=== PATIENT | male | born 1975 | race Native Hawaiian/Other Pacific Islander ===

== ENCOUNTER → 2018-06-23 | Outpatient (CLI) | payer MEDICARE, OTHER ==
--- NOTE | 2018-06-23 21:54 | CONS ---
CONSULTATION DATE OF SERVICE: 06/23/2018 This patient is a 43-year-old gentleman who has been evaluated in the sleep center for obstructive sleep apnea-hypopnea syndrome. Patient was diagnosed with obstructive sleep apnea in about 2010, and he started treatment with CPAP. But several months ago his machine was broken. Patient snores and has awakenings from sleep 3 times. He has problems with falling asleep. He usually goes to bed between 9 and 10 p.m. and sleeps until around 6 in the morning. He does not have a TV set in the bedroom. He usually sleeps on the side position. No history of hypnagogic hallucinations, sleep paralysis or cataplexy. [place] Sleepiness Scale is 8. PAST MEDICAL HISTORY: Positive for: 1. ADD in the past. 2. History of rhinitis. PAST SURGICAL HISTORY: Low back surgery. MEDICATIONS: None at the present time. SOCIAL HISTORY: Negative for smoking or using alcohol. FAMILY HISTORY: Headaches and diabetes. REVIEW OF SYSTEMS: Multiple awakenings from sleep. PHYSICAL EXAMINATION: GENERAL: A pleasant 43-year-old gentleman without distress. VITAL SIGNS: BP 123/75, HR 68, RR 16, height 5 feet 8 inches, weight 169 pounds, body mass index 25.6, temperature 98.0, oxygen saturation at room air 96%. HEENT: PERRLA, EOMI. Evaluation of oropharynx showed tongue protrudes midline. Extremely low position of soft palate. Mallampati IV. Slight restriction of nasal breathing. NECK: Supple. No JVD. Thyroid is not palpable. Neck measures 15 inches in circumference. LUNGS: Clear to percussion and to auscultation. Good air exchange. No wheezing or rhonchi. HEART: S1, S2 regular. No murmurs, gallops or rubs. ABDOMEN: Soft and nontender. Bowel sounds are present. No organomegaly. EXTREMITIES: No clubbing or cyanosis. CLASSIFIED AD CLERK: Awake, alert, and oriented X3. Cranial nerves 2 to 7 intact. There is no fasciculation or atrophy. noted. No focal deficits observed. IMPRESSION: 1. Snoring, multiple awakenings from sleep, low position of soft palate, history of obstructive sleep apnea-hypopnea syndrome in the past; obstructive sleep apnea- hypopnea syndrome. 2. History of attention deficit disorder in the past. 3. History of back problems, status post low back surgery. 4. History of rhinitis. PLAN: 1. Polysomnography for evaluation of patient's breathing during sleep. 2. CPAP/BiPAP titration if sleep study confirms obstructive sleep apnea-hypopnea syndrome. 3. Preferable position during sleep on the side. 4. No driving if patient feels any sleepiness. 5. I will see patient for follow up visit to explain results of testing and following plan. Thank you very much for allowing me to participate in the management of your patient. Sincerely, Alfonzo Porter MD, PhD, FAASM Diplomat of [place] [employer] [place] [employer] [facility] [place] MMODL / IJN: [id number] /
== END | disposition home or self-care (01) ==
LOC: SLEEP 14:40
PROVIDERS: ATTEND Internal Medicine
DX: R06.83 Snoring (principal); Z86.69 Personal history of other diseases of the nervous system and sense organs; Z87.39 Personal history of other diseases of the musculoskeletal system and connective tissue; Z87.09 Personal history of other diseases of the respiratory system; Z98.890 Other specified postprocedural states
CPT/HCPCS: 99211

== ENCOUNTER → 2020-08-02 | Outpatient (CLI) | payer MEDICARE ==
--- NOTE | 2020-08-02 10:40 | XR ---
EXAMINATION TYPE: XR lumbar spine 2 or 3V DATE OF EXAM: 08/02/2020 CLINICAL HISTORY: pain TECHNIQUE: Three views of the lumbar spine are submitted. COMPARISON: None. FINDINGS: There are 5 lumbar type vertebral bodies identified. The lumbar spine shows satisfactory alignment w ithout evidence of acute fracture or dislocation. Vertebral body heights are within normal limits. Mild degenerative disc space narrowing primarily at L5-S1. The overlying soft tissue appears unremar kable. IMPRESSION: No acute fracture or dislocation is seen in the lumbar spine. ICD 10 NO FRACTURE, INITIAL EVALUATION
--- NOTE | 2020-08-02 10:41 | XR ---
EXAMINATION TYPE: XR cervical spine comp DATE OF EXAM: 08/02/2020 CLINICAL HISTORY: pain COMPARISON: NONE TECHNIQUE: Frontal, lateral, oblique, swimmers, and open mouth view of the cervical spine are obtaine d. FINDINGS: The cervical spine is visualized in its entirety from C1 thru the top of T1 level. It is s atisfactory in alignment without evidence of acute fracture or dislocation. The pre-vertebral soft t issue appears within normal limits. Disc spaces are well preserved. The C1-C2 articulation is unremar kable on the open mouth view. The oblique images are within normal limits. IMPRESSION: No acute fracture or dislocation is seen in the cervical spine.ICD 10 NO FRACTURE, INITI AL EVALUATION
--- NOTE | 2020-08-02 10:41 | XR ---
EXAMINATION TYPE: XR thoracic spine complete DATE OF EXAM: 08/02/2020 CLINICAL HISTORY: pain TECHNIQUE: Frontal, lateral, and swimmer's view of thoracic spine are obtained. COMPARISON: None. FINDINGS: Thoracic spine show satisfactory alignment without evidence of acute fracture or dislocatio n. Vertebral body heights are preserved. Disc spaces are well preserved. Visualized ribs are unrem arkable. IMPRESSION: No acute fracture or dislocation is seen in the thoracic spine. ICD 10 NO FRACTURE, INIT IAL EVALUATION
== END | disposition home or self-care (01) ==
LOC: RADXRMAIN 09:58
PROVIDERS: ATTEND Nurse Practitioner Gerontology
DX: M54.5 Low back pain (principal); M54.6 Pain in thoracic spine; M54.2 Cervicalgia
CPT/HCPCS: 72050; 72072; 72100

== ENCOUNTER → 2020-09-03 | Outpatient (CLI) | payer MEDICARE ==
--- NOTE | 2020-09-03 08:08 | CT ---
EXAMINATION TYPE: CT pelvis wo con DATE OF EXAM: 09/03/2020 COMPARISON: None HISTORY: Bilateral hip pain, left worse than right CT DLP: 210.6 mGycm Automated exposure control for dose reduction was used. Unenhanced CT of the pelvis was performed wit h bone and soft tissue window settings submitted. FINDINGS: There is mild degenerative narrowing noted of the bilateral hip joints. Mild acetabular spur formatio n is noted bilaterally. There is no evidence for femoral acetabular impingement. No evidence for frac ture or dislocation. No osseous lesions seen. No soft tissue mass or fluid collection evident. IMPRESSION: MILD DEGENERATIVE CHANGES OF THE HIP JOINTS.
== END | disposition home or self-care (01) ==
LOC: RADCTMAIN 07:10
PROVIDERS: ATTEND Family Medicine
DX: M16.0 Bilateral primary osteoarthritis of hip (principal)
CPT/HCPCS: 72192

== ENCOUNTER → 2020-10-22 | Outpatient (CLI) | payer MEDICARE ==
--- NOTE | 2020-10-22 17:41 | MR ---
EXAMINATION TYPE: MR brain wo/w con DATE OF EXAM: 10/22/2020 COMPARISON: 12/03/2015, 12/02/2015 CT HISTORY: Neck pain into risa upper extremities, headaches. History of fall from 2nd story onto head an d neck. CONTRAST: Performed utilizing 7 mL intravenous Gadavist gadolinium contrast. TECHNIQUE: Multiplanar, multiecho imaging on a 3.0 [place] magnet is performed through the brain. Stud y is performed within 24 hours of arrival to the hospital. The craniovertebral junction is normal. The pituitary is normal. Anterior to the pituitary along th e cribriform plate is a 2.1 x 1.6 cm intermediate signal area. This does not appear to enhance. Lack of significant growth suggests this is more likely a benign process. Monitoring however, is recommend ed. Consider a repeat CT sinus study without contrast to reevaluate cribriform plate. Diffusion-weighted imaging is performed. No abnormal hyperintensity is present to suggest an acute i ntracranial infarct or acute ischemic change. No signal abnormality within the brain is evident. No contrast enhancement within the brain is eviden t. Ventricles and sulci are appropriate for the patient age. IMPRESSIONS: 1. No acute intracranial process. No acute posttraumatic changes. 2. Persistent oval density within the superior sphenoid sinus. Significant interval growth is not shahrzad dent suggesting a more benign process. Consider repeat CT sinuses to reevaluate the cribriform plate.
--- NOTE | 2020-10-22 21:50 | MR ---
EXAMINATION TYPE: MR cervical spine wo con DATE OF EXAM: 10/22/2020 COMPARISON: None HISTORY: Neck pain into risa upper extremities, headaches. History of fall from 2nd story onto head an d neck. CONTRAST: Performed utilizing 0 mL intravenous Gadavist gadolinium contrast. TECHNIQUE: Multiplanar multiecho imaging on a 3.0 [place] magnet is performed through the cervical spin e. FINDINGS: The craniovertebral junction is normal. Vertebral body alignment is normal. C7-T1: No focal disc herniation or significant disc bulge is evident. No spinal canal stenosis or n eural foraminal stenosis is present. C6-7: No focal disc herniation or significant disc bulge is evident. No spinal canal stenosis or trish ral foraminal stenosis is present. C5-6: No focal disc herniation or significant disc bulge is evident. No spinal canal stenosis or trish ral foraminal stenosis is present. C4-5: No focal disc herniation or significant disc bulge is evident. No spinal canal stenosis or trish ral foraminal stenosis is present. C3-4: There is a large right paracentral disc herniation with moderate to significant anterior thecal sac compression. This comes in close approximation with the spinal cord. Some cord flattening is not ed at this level. Right foraminal moderate stenosis is present. Mild left foraminal narrowing is pres ent.. C2-3: Right paracentral focal disc protrusion is present with moderate anterior thecal sac compressio n. This comes in close approximation of the spinal cord. No AP spinal canal stenosis is present. Neur al foramen are patent. Minimal flattening along the anterior right aspect of the spinal cord may be p resent. No cord contact is identified however. IMPRESSIONS: 1. Focal disc herniation with moderate anterior thecal sac compression C2-C3 in the right paracentral canal may have cord deformity although no cord contact is identified. 2. Moderately large right paracentral disc herniation with moderate to significant anterior thecal sa c compression. Cord flattening is present although no cord contact is evident on this image. No steno sis is evident.
== END | disposition home or self-care (01) ==
LOC: RADMRIMAIN 14:50
PROVIDERS: ATTEND Family Medicine
DX: M50.21 Other cervical disc displacement, high cervical region (principal); M54.12 Radiculopathy, cervical region; G95.29 Other cord compression
CPT/HCPCS: 72141; 70553; A9585

== ENCOUNTER → 2021-01-03 | Outpatient (CLI) | payer MEDICARE ==
--- NOTE | 2021-01-04 07:34 | CT ---
EXAMINATION TYPE: CT cervical spine wo con DATE OF EXAM: 01/03/2021 COMPARISON: None HISTORY: fall, pain and numbness CT DLP: 397.[address] of the cervical spine was performed with bone and soft tissue window settings submitted . Coronal and sagittal reconstruction is obtained. There is normal alignment and prevertebral soft tissues. I do not see evidence for fracture or sublu xation. C2-3: Within normal limits C3-4: Mild degenerative disc space narrowing. Right paracentral disc bulge mildly effaces the ventral thecal sac. No evidence for central stenosis or herniation. Mild right foraminal encroachment. C4-5: Within normal limits C5-6: Within normal limits C6-7: Within normal limits C7-T1: Within normal limits IMPRESSION: 1. Mild degenerative disc disease with right paracentral disc bulge at C3-4. Mild right foraminal enc roachment at this level.
== END | disposition home or self-care (01) ==
LOC: RADCTMAIN 18:13
PROVIDERS: ATTEND Orthopaedic Surgery
DX: M50.31 Other cervical disc degeneration, high cervical region (principal); M50.21 Other cervical disc displacement, high cervical region; W19.XXXA Unspecified fall, initial encounter
CPT/HCPCS: 72125

== ENCOUNTER → 2021-01-22 | Outpatient (CLI) | payer MEDICARE ==
[2021-01-22 11:48] LABS: Basophils # (A) 0.1 k/uL (0-0.2); Basophils % (A) 1 %; Eosinophils # (A) 0.2 k/uL (0-0.7); Eosinophils % (A) 3 %; HCT 53.2 % (39.0-53.0); HGB 17.6 gm/dL (13.0-17.5); Lymphocytes # (A) 1.5 k/uL (1.0-4.8); Lymphocytes % (A) 18 %; MCH 32.4 pg (25.0-35.0); MCHC 33.1 g/dL (31.0-37.0); MCV 97.7 fL (80.0-100.0); Monocytes # (A) 0.4 k/uL (0-1.0); Monocytes % (A) 5 %; Neutrophils # (A) 6.2 k/uL (1.3-7.7); Neutrophils % (A) 73 %; Platelet Count 218 k/uL (150-450); RBC 5.45 m/uL (4.30-5.90); RDW 11.8 % (11.5-15.5); WBC 8.5 k/uL (3.8-10.6)
[2021-01-22 12:04] LABS: ALT 19 U/L (4-49); AST 24 U/L (17-59); African American GFR (CKD) >90 (>60 ml/min/1.73 sqM); Albumin 4.3 g/dL (3.5-5.0); Alkaline Phosphatase 79 U/L (38-126); Anion Gap 8 mmol/L; Blood Urea Nitrogen 14 mg/dL (9-20); Calcium 9.8 mg/dL (8.4-10.2); Carbon Dioxide 28 mmol/L (22-30); Chloride 105 mmol/L (98-107); Glucose 87 mg/dL (74-99); Non-African American GFR(CKD) >90 (>60 ml/min/1.73 sqM); Potassium 4.2 mmol/L (3.5-5.1); Sodium 141 mmol/L (137-145); Total Bilirubin 0.9 mg/dL (0.2-1.3); Total Protein 7.6 g/dL (6.3-8.2)
[2021-01-22 12:23] LABS: Prothrombin Time 10.4 sec (9.0-12.0)
== END | disposition home or self-care (01) ==
LOC: LABPAT 10:05
PROVIDERS: ATTEND Orthopaedic Surgery
DX: Z01.818 Encounter for other preprocedural examination (principal); M50.21 Other cervical disc displacement, high cervical region; R00.1 Bradycardia, unspecified; Z22.322 Carrier or suspected carrier of Methicillin resistant Staphylococcus aureus
CPT/HCPCS: 36415; 80053; 85025; 85610; 87070; 93005

== ENCOUNTER → 2021-01-22 | Outpatient (CLI) | payer MEDICARE ==
[2021-01-22 15:59] LABS: Uric Acid 5.3 mg/dL (3.7-8.7)
[2021-01-23 12:47] LABS: HLA B27 NEGATIVE
[2021-01-23 14:25] LABS: Protein, Total 7.4 g/dL (6.2-8.2)
[2021-01-23 16:58] LABS: Cyclic Citrull Pep IgG Unit <0.5 U/mL; Cyclic Citrullinated Pep IgG NEGATIVE (NEGATIVE)
[2021-01-24 11:30] LABS: Free Kappa Lt Chain Qnt, Serum 2.03 mg/dL (0.33-1.94)
== END | disposition home or self-care (01) ==
LOC: LABWHC1 10:01
PROVIDERS: ATTEND Family Medicine
DX: G62.9 Polyneuropathy, unspecified (principal); M54.12 Radiculopathy, cervical region; M54.9 Dorsalgia, unspecified
CPT/HCPCS: 36415; 80053; 82175; 82525; 82570; 83655; 83825; 83883; 84165; 84403; 84550; 85025; 85610; 86038; 86200; 86334; 86618; 86812; 87070; 93005

== ENCOUNTER 2021-01-28 06:16 | Day surgery (SDC) | payer MEDICARE ==
[2021-01-24 13:17] VITALS: BMI 23.6
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
[~2021-01-28 06:16] MED LIST: ACETAMINOPHEN TAB 500 MG TAB PO PRN; GABAPENTIN 300 MG CAP PO PRN; ONDANSETRON 4 MG/2 ML VIAL IVP PRN
[2021-01-28] MEDS ORDERED: ONDANSETRON 4 MG/2 ML VIAL IVP ONE (06:40)
[2021-01-28] MEDS ORDERED: LACTATED RINGERS 1,000 ML IV SCH (06:40)
[2021-01-28] MEDS ORDERED: MIDAZOLAM 2 MG/2 ML VIAL IV PRN (06:40)
[2021-01-28] MEDS ORDERED: LIDOCAINE 1% (10MG/ML) FOR IV START INTRADERMA PRN (06:40)
[2021-01-28] MEDS ORDERED: DEXAMETHASONE SOD PHOSPHATE 4 MG/ML 1 ML VIAL IV ONE (06:40)
[2021-01-28] MEDS ORDERED: HYDROmorphone 0.5 MG/0.5 ML SYRINGE IVP PRN (07:00)
[2021-01-28] MEDS ORDERED: NALOXONE 0.4 MG/ML 1 ML VIAL ONE (07:36)
[2021-01-28] MEDS ORDERED: DEXAMETHASONE SOD PHOSPHATE 10 MG/ML 1 ML VIAL ONE (07:36)
[2021-01-28] MEDS ORDERED: KETOROLAC 15 MG/ML 1 ML VIAL ONE (07:36)
[2021-01-28] MEDS ORDERED: SUCCINYLCHOLINE CHLORIDE 100 MG/5 ML SYR IV ONE (07:36)
[2021-01-28] MEDS ORDERED: PROPOFOL 10 MG/ML 20 ML VIAL IV ONE (07:36)
[2021-01-28] MEDS ORDERED: LIDOCAINE 1% INJ 10MG/ML (20 ML MDV) ONE (07:36)
[2021-01-28] MEDS ORDERED: MIDAZOLAM 2 MG/2 ML VIAL ONE (07:36)
[2021-01-28] MEDS ORDERED: fentaNYL (PF) 50 MCG/ML 2 ML AMP ONE (07:36)
[2021-01-28] MEDS ORDERED: BUPIVACAINE (PF) 0.25% 30 ML VIAL SQ ONE ×2 (08:25)
[2021-01-28] MEDS ORDERED: GELATIN SPONGE,ABSORB (SMALL) 1 EACH SPONGE TOPICAL ONE (08:26)
[2021-01-28] MEDS ORDERED: THROMBIN (BOVINE) 5,000 UNIT VIAL TOPICAL ONE (08:26)
[2021-01-28] MEDS ORDERED: LACTATED RINGERS 1,000 ML IV ONE (09:27)
--- NOTE | 2021-01-28 10:05 | FL ---
EXAMINATION TYPE: FL guidance operating room DATE OF EXAM: 01/28/2021 HISTORY: Fluoroscopy time 59 seconds of fluoroscopy provided. IMPRESSION: 1. Fluoroscopy time.
--- NOTE | 2021-01-28 10:05 | XR ---
EXAMINATION TYPE: XR cervical spine limited DATE OF EXAM: 01/28/2021 COMPARISON: NONE HISTORY: post op TECHNIQUE: 4 views submitted FINDINGS: Postsurgical changes. IMPRESSION: Postop
--- NOTE | 2021-01-28 10:08 | P.PN ---
Progress Note - Text Progress Note Date: 01/28/21 Brief Post Op: Surgeon: Angela Assist: Branch Pre op dx; C3-C4 large disc herniation right upper extremity radiculopathy and weakness Post op dx: Same Procedure: C3-C4 total disc replacement Anesthesia: GETA EBL: 20 mL Fluids: Thousand cc UO: 0 Dispo: Stable to PACU Post op Plan: Mobilize and postoperative care unit Soft collar at all times Pain control to be sent home with patient Discharge when awake in stable for home with self care per anesthesia and PACU
[2021-01-28 10:37] VITALS: TEMP 96.8
[2021-01-28 10:47] VITALS: RESP 16
[2021-01-28] MEDS ORDERED: ACETAMINOPHEN IV (For NPO) 1,000 MG/100 ML VIAL IVPB ONE (11:12)
[2021-01-28] MEDS ORDERED: HYDROcodone/APAP 7.5-325MG 1 EACH TAB ONE (11:47)
[2021-01-28] MEDS ORDERED: HYDROcodone/APAP 7.5-325MG 1 EACH TAB PO ONE (11:48)
[2021-01-28 13:25] VITALS: BP 147/79; PULSE 59
--- NOTE | 2021-01-30 07:50 | P.OP ---
Date of Procedure: 01/28/21 Preoperative Diagnosis: 1. C3-C4 severe Herniated Nucleus Pulposus with severe stenosis 2.Right upper extremity radiculopathy 3. Right upper extremity weakness Postoperative Diagnosis: 1. C3-C4 severe Herniated Nucleus Pulposus with severe stenosis 2.Right upper extremity radiculopathy 3. Right upper extremity weakness Procedure(s) Performed: 1. C3-4 Total disc replacement 2. Use of intraoperative microscope 3. Use of intraoperative SSEP, MEP and EMG monitoring Implants: Prodisc C 6 mm x Large Deep Anesthesia: GETA Surgeon: Vern Miller Billet Worker #1: Lavelle Han (Was present and necessary for the entire case) Estimated Blood Loss (ml): 20 IV fluids (ml): 1,000 Urine output (ml): 0 Pathology: none sent Condition: stable Disposition: PACU Indications for Procedure: 55-year-old male presented with complaints of right upper extremity as well as left upper extremity radiculopathy pain in his right shoulder and decreased sensation to his hand. The patient is having this for some time he underwent a multitude of different conservative treatments including physical therapy and home exercise program medications prescription medications [id number] medications as well as injections none of which helped him with him his symptoms at this time. We discussed different surgical options and the patient has elected for total disc replacement to a large disc herniation at C3-C4 which is present. Patient seen preoperatively operative report for full 12. Patient cemented department anesthesia and the fit for surgery. Consent was obtained and reviewed risks and benefits discussed again as outlined in the risk review. Site was marked patient was given a weight-based dose of antibiotics was willing to proceed with the procedure Description of Procedure: The patient was seen and examined in the preoperative area. All preoperative protocols were followed. Informed consent was obtained risks and benefits of the procedure were discussed at length. Risks including bleeding infection damage to the surrounding tissue and risk of reoperation were discussed with the patient. Risk of anesthesia up to and including was a discussed with the patient. These are outlined in the risk review. They were willing to accept these risks and all of the risks of surgery. The patient was given a weight- based dose of antibiotics in the form of 2 g Ancef IVPB 1. The patient was seen and evaluated by the anesthesia team who deemed them fit for surgery. The site was marked, the patient was willing to proceed with the procedure. The patient was transferred to the operative suite by the Department of anesthesia. They were then drifted off to sleep by the department anesthesia and GETA was performed. The patient tolerated this well. . Once confirmation of lines and ventilation the patient was transferred to a supine flattop José table very carefully. All bony prominences including wrists, elbows, axilla, chest, hips, and thighs, and feet were padded very well. Special attention was paid to the genitalia and these were padded accordingly. SCDs were placed on bilateral lower extremities and were connected. Arms were well padded and placed tucked at the patient's side well-padded. A shoulder roll was placed along with a neck bolster.. Once in position, again we confirmed good ventilation capabilities and that lines were running appropriately. The patient's anterior cervical spine was then exposed. 1010s were placed outlining the incision site. Standard alcohol was used to clean the incision site and allowed to dry. C-arm was used to biomark the patient and confirm level for incision which was marked with a skin marker. Operative briefing was performed with all teams and everyone in agreement to proceed. The patient was then prepped and draped in a normal sterile fashion. Timeout was then performed and all parties were in agreement with the procedure to be performed. A transverse incision was then made 3 fingerbreadths within Alina's lines down to the platysma. The platysma was split longitudinally, and the superficial layer of the middle cervical fascia was identified and gently spread out medial to the sternocleidomastoideus. We then carefully translated the esophagus and trachea medially and the carotid sheath laterally. We split the deep layer of the middle cervical fascia and reflected the omohyoid caudally. We were able to reach the deep cervical fascial layer with large osteophytes and used the C- arm to localize and confirm C3-4 interspace without violating any of the spaces. The longus colli muscles were then reflected left and right from the uncovert ebral osteophytes that were large. Under C-arm guidance, we resected these osteophytes and anterior syndesmophytes. Once these had been cleared out, bone wax was used to seal any bone bleeders. We then carefully placed 2 depth measured Shadow-Line blades underneath the longus colli muscles and gently reflected our exposure with a transverse vp genetic. The endotracheal cuff was deflated by about 1 mL to minimize retropharyngeal pressure. With an AP imaging, we verified midline. We now under C-arm guidance placed an awl and then two 14 mm pins into the lower half of the C4 body in its midsection and the upper half of C3. We then gently disengaged the C3-4 vertebral bodies from one another with an intervertebral vp genetic and a distraction tool using a [place] distractor. An operating microscope was now brought into place, and we carefully burred off the upper posterior endplate of C4 and the medial edge of the uncovertebral joints. We minimized any endplate burring and scraped off any cartilage after the disc had been debrided. We then undermined with a small 6.0 curet the posterior longitudinal ligament and the posterior annulus osteophyte, and we resected the disc osteophyte complex behind the vertebral bodies and posterior to the uncovertebral joints until we had a clear, palpable exit space of the roots on both sides. Local hemostatic agents were placed into the for seng. We checked for neural passage with small ball probes under C-arm guidance. With satisfactory compression and christian of anterior height achieved, we now placed a trial spacer, 6 mm height with Large deep template and then after this had been secured, flush with the posterior vertebral body. We drilled 2 troughs with a side-cutting drill saw under C-arm guidance with pulsed f luoroscopy. We then removed the templating tool, cleaned out the trough fully, and then inserted the disc with the hand knitter. We then released the pins. We sealed the troughs of the tobias with bone wax. The pin site of C3-4 was sealed with bone wax as well. There were no electrodiagnostic changes. All pins were now removed. Traction was removed. Bone wax was used to seal all pin sites. Biplanar imaging revealed satisfactory alignment and hardware placement in all planes. Thorough irrigation was carried out. We confirmed for hemostasis and no CSF leak. There were no neural changes on sequential motor checks or SEPs. We closed in layers with 3-0 Vicryl for platysma, 3-0 Vicryl subcu and 4-0 Monocryl for skin. Acrylic skin glue was applied. A sterile dressing was applied after the glue had dried. The patient was returned to the recovery room in stable, extubated condition. He had received IV Toradol. Patient was then awakened and extubated by the department of anesthesia having tolerated the procedure very well with no complications. They were transferred to the postoperative care unit in stable condition. POSTOPERATIVE PLAN: Postop mobilization without collar. Gentle neck range of motion will be encouraged. Indomethacin for 2 weeks, 50 mg twice daily for HO prophylaxis.
== END 2021-01-28 13:49 | disposition home or self-care (01) ==
LOC: OR 06:16
PROVIDERS: ATTEND Orthopaedic Surgery
DX: M50.11 Cervical disc disorder with radiculopathy, high cervical region (principal); M25.78 Osteophyte, vertebrae; G47.30 Sleep apnea, unspecified; R41.3 Other amnesia; R20.0 Anesthesia of skin; G89.29 Other chronic pain; M54.9 Dorsalgia, unspecified; G43.909 Migraine, unspecified, not intractable, without status migrainosus; Z87.81 Personal history of (healed) traumatic fracture; Z87.820 Personal history of traumatic brain injury; Z98.890 Other specified postprocedural states; Z87.891 Personal history of nicotine dependence; Z79.899 Other long term (current) drug therapy
CPT/HCPCS: 87635; 72040; 22856; C1713; C1762; J2250; J1100; J2310; J0690; J2405; J2001; J3010; J0131; J1885; J0330; J2704; J1170

== ENCOUNTER → 2021-02-19 | Outpatient (CLI) | payer MEDICARE ==
--- NOTE | 2021-02-19 12:43 | SFUN ---
SLEEP CENTER FOLLOW UP NOTE DATE OF SERVICE: 02/19/2021 This 45-year-old gentleman has been followed in Sleep Center for treatment of obstructive sleep apnea-hypopnea syndrome. The last time I saw this patient was at the beginning of 2019. At that time we did a sleep study which showed that the patient had an apnea-hypopnea index of 6.9 and mild periodic limb movements. Before that, the patient was on treatment with CPAP. Since that time patient did not have any CPAP therapy. At the present time he continues to snore and he continues to have multiple awakenings from sleep. [place] Sleepiness Scale today is 8. MEDICATIONS: 1. Drisdol 1200 mcg one capsule every week. 2. Namenda 5 mg once a day. 3. Methocarbamol 750 mg as needed every 8 hours. 4. Lyrica 100 mg twice a day. 5. Voltaren topical gel. PHYSICAL EXAMINATION: GENERAL: Pleasant patient in no distress. VITAL SIGNS: BP 152/90, HR 63, RR 15, height 5 feet 8-1/2 inches, weight 165.6 pounds, body mass index 24.7, temperature 97.7, oxygen saturation at room air 99%. HEENT: PERRLA, EOMI, evaluation of oropharynx showed tongue protrudes midline. Extremely low position of soft palate; Mallampati IV. Some restriction of nasal breathing. NECK: Supple, no JVD. Thyroid is not palpable. LUNGS: Clear to percussion and to auscultation. Good air exchange. No wheezing or rhonchi. HEART: S1, S2 regular. No murmurs, gallops, or rubs. ABDOMEN: Soft and nontender. Bowel sounds are present. No organomegaly appreciated. EXTREMITIES: No clubbing or cyanosis. SCALLOPER: Awake, alert, and oriented X3. Cranial nerves 2 to 7 intact. There is no fasciculation or atrophy. noted. No focal deficits observed. IMPRESSION: 1. Snoring, multiple awakenings from sleep, extremely low position of soft palate, history of obstructive sleep apnea in the past; obstructive sleep apnea-hypopnea syndrome. 2. History of attention deficit hyperactivity disorder. 3. History of back problems, status post low back surgery. 4. History of neck problems, status post disc replacement of the neck surgery recently. 5. Restriction of nasal breathing. 6. History of rhinitis. PLAN: 1. Polysomnography for evaluation of patient's breathing at the present time. 2. CPAP treatment if sleep study is positive for obstructive sleep apnea-hypopnea syndrome. 3. Sleep hygiene with regular time in bed for 7-1/2 to 8 hours. 4. Precautions related to driving. No driving if feeling sleepiness. 5. Please check iron profile, including ferritin level. Low level of iron may increase risk for periodic limb movements. Periodic limb movements have been documented at the beginning of 2019. We will check situation with leg movements at the present time during the sleep study. Thank you very much for allowing me to participate in the management of your patient. Sincerely, Alfonzo Porter MD, PhD, FAASM Diplomat of [employer] Sleep Medicine Board of [employer] Dye Jig Operator of [facility] [place] DANITA / MARVA: [id number] /
== END ==
LOC: SLEEP 11:24
PROVIDERS: ATTEND Internal Medicine
DX: G47.33 Obstructive sleep apnea (adult) (pediatric) (principal); F90.9 Attention-deficit hyperactivity disorder, unspecified type; R06.89 Other abnormalities of breathing; Z87.39 Personal history of other diseases of the musculoskeletal system and connective tissue; Z87.09 Personal history of other diseases of the respiratory system; Z98.890 Other specified postprocedural states

== ENCOUNTER → 2021-03-27 | Outpatient (CLI) | payer MEDICARE ==
--- NOTE | 2021-03-27 22:46 | SFUN ---
SLEEP CENTER FOLLOW UP NOTE DATE OF SERVICE: 03/27/2021 This 46-year-old gentleman has come into the Sleep Center to discuss results of sleep study and the following plan. His sleep study showed that patient has obstructive sleep apnea-hypopnea syndrome with apnea-hypopnea index 8.7, in REM sleep 41, with oxygen desaturation to 81%; oxygen below normal for 2.7 minutes. The patient has symptoms of excessive daytime sleepiness. Today his [place] Sleepiness Scale is 13. CURRENT MEDICATIONS: Methocarbamol, Drisdol, Namenda, Voltaren. PHYSICAL EXAMINATION: GENERAL: Pleasant patient in no distress. VITAL SIGNS: BP 147/84, HR 67, RR 12, weight 162.4, temperature 97.5, oxygen saturation at room air 97%. HEENT: PERRLA, EOMI, evaluation of oropharynx showed tongue protrudes midline. NECK: Supple, no JVD. Thyroid is not palpable. LUNGS: Clear to percussion and to auscultation. Good air exchange. No wheezing or rhonchi. HEART: S1, S2 regular. No murmurs, gallops, or rubs. ABDOMEN: Soft and nontender. Bowel sounds are present. No organomegaly appreciated. EXTREMITIES: No clubbing or cyanosis. WEBSITE DEVELOPER: Awake, alert, and oriented X3. Cranial nerves 2 to 7 intact. There is no fasciculation or atrophy. noted. No focal deficits observed. IMPRESSION: 1. Obstructive sleep apnea-hypopnea syndrome. Patient presented with symptoms of excessive daytime sleepiness. [place] Sleepiness Scale is 13. 2. History of attention deficit hyperactivity disorder. 3. History of back problems, status post low back surgery. 4. History of neck problems, status post disc replacement in the neck. 5. Some restriction of nasal breathing with history of rhinitis. PLAN: 1. Patient will be started on treatment with CPAP. I wrote a prescription for a new CPAP unit, range of pressure 5 to 15, with nasal pillows mask, medium size, Dawson FX. Patient should use equipment every night for the whole night. 2. Sleep hygiene with regular time in bed for 7-1/2 to 8 hours. 3. Follow-up visit in about 30 to 90 days after patient gets his new machine. 4. No driving if feeling sleepiness. Thank you very much for allowing me to participate in the management of your patient. Sincerely, Alfonzo Porter MD, PhD, FAASM Diplomat of [employer] Sleep Medicine Board of [employer] Actuarial Internship of [facility] [place] [email or web address] / MARVA: [id number] /
== END ==
LOC: SLEEP 13:44
PROVIDERS: ATTEND Internal Medicine
DX: G47.33 Obstructive sleep apnea (adult) (pediatric) (principal); F90.9 Attention-deficit hyperactivity disorder, unspecified type; Z87.39 Personal history of other diseases of the musculoskeletal system and connective tissue; Z87.09 Personal history of other diseases of the respiratory system; Z98.890 Other specified postprocedural states

== ENCOUNTER → 2021-11-13 | Outpatient (CLI) | payer MEDICARE ==
--- NOTE | 2021-11-13 17:08 | P.PN ---
Subjective DATE: 11/13/2021 FOLLOW UP VISIT. Patient with obstructive sleep apnea hypopnea syndrome return to sleep center for follow-up visit. Recently patient had sleep study which documented obstructive sleep apnea hypopnea syndrome. Patient was initiated on PAP therapy and today is first visit after treatment was started. Patient was able to use PAP equipment but not every night . Patient feels better after she started to use CPAP equipment. Less sleepy during the day. The patient does not have significant problems with the mask, PAP pressure and humidification. [place] sleepiness scale is 15. I checked information from PAP unit and discuss it with patient and family in details. PAP unit pressure 5-12, average 8.5 cm H2O. Usage is 47 % and 27% for more then 4 hours, average 4 hours and 42 minutes per night. Leak is 7.8 l/m, which is in acceptable range. Apnea Hypopnea Index is 0.6, which is normal. MEDICATIONS:1. Methocarbamol 2. Drisdol 3. Namenda 4. Voltaren During physical exam: GENERAL: A pleasant patient without any distress. VITAL SIGNS: BP 162/92, HR 60, RR 16, weight 165, temperature 98.1, oxygen saturation at room air 96. HEENT: PERRLA, EOMI.low position of soft palate, NECK: Supple. No JVD. LUNGS: Clear to percussion and to auscultation. Good air exchange. No wheezing or rhonchi. HEART: S1, S2 regular. ABDOMEN: Soft and nontender.[] EXTREMITIES: No clubbing or cyanosis. SUPERVISOR CORRESPONDENCE SECTION: Awake, alert, and oriented x3. No focal deficit. Impressions: 1. Obstructive sleep apnea-hypopnea syndrome. Patient started to use CPAP equipment but not every night at the present time. Respiration normalized on CPAP. Patient feels better while using CPAP. 2. History of ADHD. 3. History of back problems, status post low back surgery. 4. History of neck problems, status post disc replacement in the neck.. 5. History of rhinitis. Plan: 1. Continue using PAP equipment every night for the whole night. Patient promised to follow recommendations. 2. To change air filter at least 1-2 times per month. 3. PAP unit should stay lower then position of the head. 4. Advised patient to remove all remaining water from humidifier canister daily and make it dry after each usage. Refill canister with fresh distilled water before each usage. 5. Sleep hygiene with regular time in bed for at least 8 hours. 6. Precautions related to driving. No driving if feel any sleepiness. 7. I will maintain prescription for PAP supplies including mask, tube, filters. 8. Follow up visit in 1.5 months or earlier if patient has any problems. Thank you very much for allowing me to participate in the management of your patient. Alfonzo Porter MD, PhD, FAASM. Diplomat of [employer] [employer], Sleep Medicine Board by [employer] Warp Dresser of [facility] [place]
== END ==
LOC: SLEEP 16:42
PROVIDERS: ATTEND Internal Medicine
DX: G47.33 Obstructive sleep apnea (adult) (pediatric) (principal); F90.9 Attention-deficit hyperactivity disorder, unspecified type; Z87.09 Personal history of other diseases of the respiratory system; Z87.39 Personal history of other diseases of the musculoskeletal system and connective tissue; Z98.890 Other specified postprocedural states; Z99.89 Dependence on other enabling machines and devices
CPT/HCPCS: 99212

== ENCOUNTER → 2022-01-29 | Outpatient (CLI) | payer MEDICARE ==
--- NOTE | 2022-01-29 16:44 | P.PN ---
Subjective DATE: [] FOLLOW UP VISIT. Patient with obstructive sleep apnea hypopnea syndrome return to sleep center for follow-up visit. Information from previous visit have been reviewed. Patient is using PAP equipment most of the nights. Patient feels better while using CPAP. He sleeps better and he feels better during the day. The patient does not have significant problems with the mask, PAP unit and humidification. [place] sleepiness scale is increased range of 15. I checked information from PAP unit. PAP unit pressure 5-12, average 8.6 cm H2O. Usage is 50 % for more then 4 hours, average 7 hours per night. Leak is 15.6 l/m, which is in acceptable range. Apnea Hypopnea Index is 1.3, which is normal. MEDICATIONS:1. Methocarbamol 2. Drisdol 3. Voltaren 4. Namenda During physical exam: GENERAL: A pleasant patient without any distress. VITAL SIGNS: BP 153/92, HR 58, RR 16 , weight 168.8, temperature 97.5, oxygen saturation at room air 100 % . HEENT: PERRLA, EOMI.low position of soft palate, Mallapati 4 . NECK: Supple. No JVD. LUNGS: Clear to percussion and to auscultation. Good air exchange. No wheezing or rhonchi. HEART: S1, S2 regular. ABDOMEN: Soft and nontender.[] EXTREMITIES: No clubbing or cyanosis. MANAGER SOCIAL: Awake, alert, and oriented x3. No focal deficit. Impressions: 1. Obstructive sleep apnea-hypopnea syndrome. Patient demonstrated slightly low compliance with treatment, benefiting from treatment. 2. History of ADHD. 3. History of back problems, status post low back surgery. 4. History of neck problems, status post disc replacement in the neck. 5. History of rhinitis. Plan: 1. Continue using PAP equipment every night for the whole night. Patient promised to follow recommendations 2. To change air filter at least 1-2 times per month. 3. PAP unit should stay lower then position of the head. 4. Advised patient to remove all remaining water from humidifier canister daily and make it dry after each usage. Refill canister with fresh distilled water before each usage. 5. Sleep hygiene with regular time in bed for at least 8 hours. 6. Precautions related to driving. No driving if feel any sleepiness. 7. Follow up visit in 2 months to check compliance or earlier if patient has any problems. Thank you very much for allowing me to participate in the management of your patient. Alfonzo Porter MD, PhD, FAASM. Diplomat of [place] [employer], Sleep Medicine Board by [employer] Executive Assistant To General Counsel of [facility] [place]
== END ==
LOC: SLEEP 15:50
PROVIDERS: ATTEND Internal Medicine
DX: G47.33 Obstructive sleep apnea (adult) (pediatric) (principal); Z99.89 Dependence on other enabling machines and devices; Z98.890 Other specified postprocedural states; Z86.59 Personal history of other mental and behavioral disorders; Z87.09 Personal history of other diseases of the respiratory system
CPT/HCPCS: 99212